=== PATIENT | female | born 1980 | race African-American/Black ===

== ENCOUNTER 2018-02-21 10:49 | Inpatient (IN) | payer OTHER ==
[2018-02-21 12:57] VITALS: BMI 23.8
[2018-02-21] MEDS: DINOPROSTONE 10 MG VAGINAL SUPPOSITORY VG ONE (13:50)
--- NOTE | 2018-02-21 13:58 | PN ---
Progress Note (short form) - Note Progress Note: cx 2 cm 50 vx -2 mr, fhr cat 1, rba to cervidil discussed
[2018-02-21 14:27] LABS: BASO % 0.5 % (0-2.0); EOS % 0.5 % (0-4.5); HEMATOCRIT 35.4 % (32.4-45.2); LYMPH % 34.9 % (8-40); MCH 24.2 pg (25.7-33.7); MCHC 31.2 g/dl (32.0-36.0); MEAN CELL VOLUME 77.5 fl (80-96); MEAN PLT VOLUME 8.5 fl (7.5-11.1); MONO % 5.8 % (3.8-10.2); NEUT % 58.3 % (42.8-82.8); PLATELET COUNT 267 K/MM3 (134-434); RBC 4.56 M/mm3 (3.60-5.2); RDW 14.3 % (11.6-15.6); WHITE BLOOD COUNT 11.5 K/mm3 (4.0-10.0)
[2018-02-21 14:41] LABS: INR 0.92 (0.83-1.09); PROTHROMBIN TIME (PATIENT) 10.8 SEC (9.7-13.0)
[2018-02-21 14:44] LABS: ACTIVATED PTT 25.5 SECONDS (25.2-36.5)
[2018-02-21 15:00] LABS: ANION GAP 9 MMOL/L (8-16); BLOOD UREA NITROGEN 10 mg/dL (7-18); CALCIUM 8.5 mg/dL (8.5-10.1); CHLORIDE 107 mmol/L (98-107); CO2 21 mmol/L (21-32); CREATININE 0.6 mg/dL (0.55-1.3); GLUCOSE,RANDOM 51 mg/dL (74-106); POTASSIUM 4.2 mmol/L (3.5-5.1); SODIUM 137 mmol/L (136-145)
[2018-02-21] MEDS ORDERED: ELECTROLYTE-148 SOLN 1,000 ML IV SCH (19:45)
[2018-02-21] MEDS ORDERED: FENTANYL/BUPIVACAINE/NS/PF - PCEA - 50 ML DISP.SYRIN EP ONE (20:37)
[2018-02-21] MEDS ORDERED: OXYTOCIN 20 UNITS in 0.9% NS 20 UNIT/1,000 ML INFUS.BAG IV ONE (21:17)
--- NOTE | 2018-02-21 21:36 | HP ---
Past Medical History - Admission History of Present Illness: 37 yo @ 40 1/7 wks by first trimester ultrasound, EDC 02/20/2018 complicated by: 1. Chronic Hepatits B - on Tenovir [address] Potter, last seen 11/2017 2. AMA - favorable [id number] Most recent growth - 12/18/17, 1473 grams (13%) Patient presented for routine IOL. She reports movement, denies vaginal bleeding, leakage of fluid or contractions. History Source: Patient Limitations to Obtaining History: No Limitations - Past Medical History Cardiovascular: No: HTN Pulmonary: No: Asthma Hepatobiliary: Yes: Hepatitis B ...: 3 ...Para: 2 ...Term: 2 ...: 0 ...Spon : 0 ...Induced : 0 ...Multiple Gestation: 0 ...LMP: 05/17/17 ... Weeks Gestation by Dates: 40.0 ...EDC by Dates: 02/21/18 ...EDC by Sono: 02/20/18 Heme/Onc: No: Anemia - Past Surgical History Past Surgical History: Yes: None Hx Myomectomy: No Hx Transabdominal Cerclage: No - Smoking History Smoking history: Never smoked Have you smoked in the past 12 months: No - Alcohol/Substance Use Hx Alcohol Use: No History of Substance Use: reports: None - Social History ADL: Independent Occupation: [employer] History of Recent Travel: No Home Medications - Allergies Allergies/Adverse Reactions: Allergies Allergy/AdvReac Type Severity Reaction Status Date / Time naproxen Allergy Intermediate Hives Verified 02/21/18 11:35 hazelnuts Allergy Itching Uncoded 02/21/18 11:35 - Home Medications Home Medications: Ambulatory Orders Vitamins (Sjr) - 1 tab PO DAILY 03/26/13 Tenofovir Disoproxil Fumarate [Viread] 300 mg PO DAILY 03/26/13 Family Disease History - Family Disease History Family History: Denies Review of Systems - Review of Systems Constitutional: reports: No Symptoms Cardiovascular: reports: No Symptoms Respiratory: reports: No Symptoms Gastrointestinal: reports: No Symptoms Genitourinary: reports: No Symptoms Musculoskeletal: reports: No Symptoms Neurological: reports: No Symptoms Endocrine: reports: No Symptoms Physical Exam - Maternity Vital Signs: Vital Signs Temperature 98.3 F 02/21/18 21:00 Pulse Rate 90 02/21/18 20:00 Respiratory Rate 20 02/21/18 20:00 Blood Pressure 127/83 02/21/18 20:00 O2 Sat by Pulse Oximetry (%) Constitutional: Yes: Well Nourished, No Distress, Calm Cardiovascular: Yes: Regular Rate and Rhythm Lungs: Clear to auscultation - Abdominal Exam/OB Fundal Height: 40 Number of Fetuses: Single Presentation: Vertex Contractions: Yes Category: I Accelerations: Non-Uniform Decelerations: None - Physical Exam Edema: No Psychiatric: Yes: Alert, Oriented - Labs Lab Results: CBC, BMP 02/21/18 13:10 02/21/18 13:10 Hemorrhage Risk Assessment - Risk Factors Medium Risk Factors: Yes: None High Risk Factors: Yes: None Risk Score: 1 Risk Level: Medium Risk Assessment/Plan 37 yo @ 40 + wks, elective IOL 1. Admit to L&D 2. Routine labs reviewed 3. Chronic Hep B - will continue tenovir 4. Cervidil inserted by Dr. Locke 5. Will offer pain medication upon request 6. Will continue expectant management
[2018-02-21] MEDS ORDERED: NALOXONE HCL 0.4 MG/ML VIAL IVPUSH PRN (21:44)
[2018-02-21] MEDS ORDERED: FENTANYL/BUPIVACAINE/NS/PF - PCEA - 50 ML DISP.SYRIN EP SCH ×2 (21:45→22:18)
--- NOTE | 2018-02-21 22:13 | PN ---
Delivery - Delivery Vaginal Delivery: No Problems Type of Anesthesia: Epidural Episiotomy/Laceration: None EBL (cc): 300 Delivery, Single - Stages of Labor Date 1st Stage Initiatied: 02/21/18 Time 1st Stage Initiated: 20:12 Date 2nd Stage Initiated: 02/21/18 Time 2nd Stage Initiated: 21:46 Date of Delivery: 02/21/18 Time of Delivery: 21:57 Date Placenta Delivered: 02/21/18 Time Placenta Delivered: 21:59 Placenta: Yes: Spontaneous - Condition of Infant Gender: Male Position: Left, OA Total Hours ROM (Hrs/Mins): 1 hour, 49 minutes - 1 Minute Total Score: 8 5 Minutes Total Score: 9 - [place] Feeding Plan Initial Plan: Exclusive throughout hospitalization Remarks - Remarks Remarks: Patient progressed to fully dilated and at 2157 via delivered a viable male in NIKI position, APGARs 9,9. Weight and length unknown at this time. Head delivered spontaneously. Nuchal cord noted and delivered through, shoulders body without difficulty. Infant with spontaneous cry and placed on mother's abdomen. Nose and mouth was bulb suctioned. Cord was clamped and cut. Cord blood and gas collected and sent. Perineum and vagina examined, no lacerations were noted. Placenta was quickly delivered spontaneously and intact, partial abruption suspected. 20 units of pitocin in 1 L IVF was given. All counts correct x 2. Mother and stable in LDR. EBL 300cc.
[2018-02-21] MEDS ORDERED: BENZOCAINE 20% 57 GM BOTTLE TP PRN (22:24)
[2018-02-21] MEDS ORDERED: METHYLERGONOVINE MALEATE 0.2 MG/1 ML AMP IM PRN (22:24)
[2018-02-21] MEDS ORDERED: WITCH HAZEL 50% (TUCKS) 40 PAD/JAR PAD TP PRN (22:24)
[2018-02-21] MEDS ORDERED: BENZOCAINE 28 GM HEMORRHOIDAL OINTMENT TP PRN (22:24)
[2018-02-21] MEDS ORDERED: BISACODYL 10 MG SUPP.RECT RC PRN (22:24)
[2018-02-21] MEDS ORDERED: OXYTOCIN 20 UNITS in 0.9% NS 20 UNIT/1,000 ML INFUS.BAG IV SCH (22:30)
[2018-02-21 22:53] LABS: ARTERIAL BLOOD GAS PCO2 55.9 mmHg (35-45); ARTERIAL BLOOD GAS pH 7.25 (7.35-7.45)
[2018-02-21 22:54] LABS: ARTERIAL BLOOD GAS BASE EXCESS -4.5 meq/l (-2-2)
[2018-02-21 22:55] LABS: ARTERIAL BLD GAS O2 SATURATION 26.4 % (90-98.9); ARTERIAL BLOOD GAS PO2 19.9 mmHg (80-100)
--- NOTE | 2018-02-22 03:33 | PN ---
Post Progress Note - Subjective Subjective: Patient without acute complaints. Reports tolerating oral intake without nausea or vomiting. Ambulating without dizziness. Denies fevers or chills. Pain well controlled with oral pain medication. without difficulty. Passing flatus. Post Day: 1 Type of Delivery: Vital Signs: Vital Signs Temperature 98.1 F 02/22/18 02:25 Pulse Rate 85 02/22/18 02:25 Respiratory Rate 20 02/22/18 02:25 Blood Pressure 114/75 02/22/18 02:25 O2 Sat by Pulse Oximetry (%) 100 02/21/18 23:00 Breast Exam: Yes: Soft Uterus: Yes: Fundus Firm, Fundus below umbilicus Abdomen/GI: Yes: Abdomen soft, Passing flatus, Tolerating PO. No: Abdominal Distention, Tender Lochia: Yes: Serosa Lochia, amount: Small Extremities: Yes: Calves non-tender. No: Edema Activity: Ambulating - Labs Labs: CBC WBC 11.5 K/mm3 (4.0-10.0) H 02/21/18 13:10 RBC 4.56 M/mm3 (3.60-5.2) 02/21/18 13:10 Hgb 11.0 GM/dL (10.7-15.3) 02/21/18 13:10 Hct 35.4 % (32.4-45.2) 02/21/18 13:10 MCV 77.5 fl (80-96) L 02/21/18 13:10 MCH 24.2 pg (25.7-33.7) L 02/21/18 13:10 MCHC 31.2 g/dl (32.0-36.0) L 02/21/18 13:10 RDW 14.3 % (11.6-15.6) 02/21/18 13:10 Plt Count 267 K/MM3 (134-434) D 02/21/18 13:10 MPV 8.5 fl (7.5-11.1) 02/21/18 13:10 Absolute Neuts (auto) 6.7 K/mm3 (1.5-8.0) 02/21/18 13:10 Neutrophils % 58.3 % (42.8-82.8) 02/21/18 13:10 Lymphocytes % 34.9 % (8-40) 02/21/18 13:10 Monocytes % 5.8 % (3.8-10.2) 02/21/18 13:10 Eosinophils % 0.5 % (0-4.5) 02/21/18 13:10 Basophils % 0.5 % (0-2.0) 02/21/18 13:10 Nucleated RBC % 0 % (0-0) 02/21/18 13:10 Assessment/Plan 37 yo PPD # 1 s/p , afebrile, vital signs stable, doing well 1. Continue routine care. 2. AM CBC with mild anemia 3. Rh positive status, no rhogam indicated. 4. Encourage ambulation 5. Continue oral pain medication 6. Anticipate discharge home day #2
[2018-02-22] MEDS: IBUPROFEN 600 MG TABLET (FP) PO PRN ×3 (06:28→21:53)
[2018-02-22 07:19] LABS: BASO % 0.1 % (0-2.0); EOS % 0.3 % (0-4.5); HEMOGLOBIN 10.1 GM/dL (10.7-15.3); LYMPH % 20.6 % (8-40); MCH 25.7 pg (25.7-33.7); MCHC 33.8 g/dl (32.0-36.0); MEAN CELL VOLUME 76.2 fl (80-96); MEAN PLT VOLUME 8.5 fl (7.5-11.1); MONO % 7.4 % (3.8-10.2); NEUT % 71.6 % (42.8-82.8); PLATELET COUNT 241 K/MM3 (134-434); RBC 3.94 M/mm3 (3.60-5.2); RDW 14.1 % (11.6-15.6); WHITE BLOOD COUNT 14.7 K/mm3 (4.0-10.0)
--- NOTE | 2018-02-22 07:46 | DS ---
Physical Exam-STRATEGIC CLIENT EXECUTIVE Vital Signs: Vital Signs Temperature 98.3 F 02/22/18 06:00 Pulse Rate 81 02/22/18 06:00 Respiratory Rate 20 02/22/18 06:00 Blood Pressure 121/77 02/22/18 06:00 O2 Sat by Pulse Oximetry (%) 100 02/21/18 23:00 Labs: CBC, BMP 02/22/18 06:30 02/21/18 13:10 Delivery - Delivery Vaginal Delivery: No Problems Type of Anesthesia: Epidural Episiotomy/Laceration: None EBL (cc): 300 Delivery, Single - Stages of Labor Date 1st Stage Initiatied: 02/21/18 Time 1st Stage Initiated: 20:12 Date 2nd Stage Initiated: 02/21/18 Time 2nd Stage Initiated: 21:46 Date of Delivery: 02/21/18 Time of Delivery: 21:57 Time Placenta Delivered: 21:59 Placenta: Yes: Spontaneous - Condition of Chief Resource Officer/Pilot Submersible Present: No Infant Gender: Male Weight: 6 lb 3 oz Position: Left, OA Total Hours ROM (Hrs/Mins): 1 hour, 49 minutes - 1 Minute Total Score: 8 5 Minutes Total Score: 9 - [place] Feeding Plan Initial Plan: Exclusive throughout hospitalization Discharge Summary Reason For Visit: LABOR ADMISSION Procedures: Principal: Vaginal delivery Other Procedures: Induction of labor Hospital Course: Patient was admitted for routine induction of labor for postdates. Cervidil was inserted and she progessed to deliver via a viable female infant. PPD # 1 patient ambulated, voiding, passing gas, tolerating oral intake and with adequate pain control. She fulfilled all criteria for discharge PPD #2 Condition: Good - Instructions Disposition: HOME - Home Medications Comprehensive Discharge Medication List: Ambulatory Orders Vitamins (Sjr) - 1 tab PO DAILY 03/26/13 Tenofovir Disoproxil Fumarate [Viread] 300 mg PO DAILY 03/26/13
[2018-02-22] MEDS: TENOFOVIR DISOPROXIL FUMARATE 300 MG TABLET PO SCH (09:42)
[2018-02-22] MEDS: PRENATAL VITAMINS W/ FOLIC ACID TABLET (FP) PO SCH (09:42)
[2018-02-22] MEDS: ACETAMINOPHEN 325 MG TABLET (FP) PO PRN ×2 (11:48→21:54)
[2018-02-22] MEDS ORDERED: SENNOSIDES/DOCUSATE COMBO (SENNA PLUS) TABLET (UD) PO PRN (22:00)
--- NOTE | 2018-02-23 08:55 | PN ---
Progress Note (short form) - Note Progress Note: ppd 2 ,no c/o , voids ok uterus firm, non tender no calf tenderness lochia mild plan d/c home in am
[2018-02-23 09:30] VITALS: BP 115/71; PULSE 80; TEMP 98.7
[2018-02-23] MEDS: PRENATAL VITAMINS W/ FOLIC ACID TABLET (FP) PO SCH (10:15)
[2018-02-23] MEDS: TENOFOVIR DISOPROXIL FUMARATE 300 MG TABLET PO SCH (10:15)
--- NOTE | 2018-02-27 16:46 | PATH ---
Surgical Pathology Report Patient Name: COMPA MONTES [facility]. Rec. #: [id number] /Age/Gender: 1980 (Age: 37) / F Account: [id number] Location: [facility] OBS/DESTINATION SPECIALIST Taken: 02/21/2018 Received: 02/22/2018 Reported: 02/27/2018 Physicians: Minoo Locke M.D. Specimen(s) Received PLACENTA Clinical History , history of chronic hepatitis B, asthma x2, 2013, 2015 Normal spontaneous vaginal delivery, possible abruption Final Diagnosis PLACENTA, DELIVERY: 348 G THIRD TRIMESTER PLACENTA WITH TRIVASCULAR UMBILICAL CORD AND UNREMARKABLE PLACENTAL MEMBRANES. Electronically Signed Gilma Nicholas M.D. Gross Description The specimen is received fresh labeled placenta and is a 348 gram, 12.0 x 12.0 x 3.2 cm. placenta with attached membranes and umbilical cord. The attached membranes are covarrubias, translucent with focal opacities and insert marginally. The umbilical cord measures 6 cm. in length and averages 1.0 cm. in diameter. The cord inserts eccentrically, 2.5 cm. to the nearest margin. No true knots or strictures are identified. Cut surface of the umbilical cord reveals 3 vessels. The surface is aquino-blue with minimal fibrin deposition and appropriate caliber vessels. The maternal surface is red-brown and intact. Sectioning reveals red-brown, and spongy parenchyma. No lesions are identified. Medical Staff Services Coordinator sections are submitted in three cassettes as follows: 1- membrane rolls and umbilical cord; 2-3- full thickness sections of placenta. 02/26/2018 [facility]02/26/2018
== END 2018-02-23 11:20 | disposition home or self-care (01) | DRG 806 ==
LOC: JDEL 10:49 → JLDR 12:15 → J3W 02-22 01:37
PROVIDERS: ADMIT Obstetrics & Gynecology; ATTEND Obstetrics & Gynecology
PROC: 10E0XZZ Delivery of Products of Conception, External Approach (ICD-10-PCS; principal; 2018-02-21)
PROC: 3E0P7VZ Introduction of Hormone into Female Reproductive, Via Natural or Artificial Opening (ICD-10-PCS; 2018-02-21)
DX: O98.42 Viral hepatitis complicating childbirth (principal); B18.1 Chronic viral hepatitis B without delta-agent; Z37.0 Single live birth; O69.81X0 Labor and delivery complicated by cord around neck, without compression, not applicable or unspecified; O48.0 Post-term pregnancy; Z3A.40 40 weeks gestation of pregnancy
CPT/HCPCS: 36415; 36600; 59025; 59409; 80048; 82803; 85025; 85610; 85730; 86593; 86850; 86900; 86901; 87389; 88307-TC

== ENCOUNTER → 2020-09-02 | Day surgery (SDC) | payer BC, OTHER | END | disposition home or self-care (01) | LOC: FMAMMOTONE 10:41 | PROVIDERS: ATTEND Surgery | PROC: 0HBT3ZX Excision of Right Breast, Percutaneous Approach, Diagnostic (ICD-10-PCS; principal; 2020-09-02) | DX: N64.89 Other specified disorders of breast (principal); R92.8 Other abnormal and inconclusive findings on diagnostic imaging of breast | CPT/HCPCS: 19081; 76098-TC-FY; 87899; A4648 ==

== ENCOUNTER 2020-09-29 04:35 | Day surgery (SDC) | payer BC ==
[2020-09-24 16:19] VITALS: BMI 21.1
[2020-09-29] MEDS ORDERED: LIDOCAINE HCL 1%, 10 MG/ML (20ML VIAL) ONE ×2 (10:09→14:40)
[2020-09-29] MEDS ORDERED: GLYCOPYRROLATE 0.2 MG/1 ML VIAL ONE (11:48)
[2020-09-29] MEDS ORDERED: MIDAZOLAM HCL 2 MG/2 ML SINGLE DOSE VIAL ONE (11:48)
[2020-09-29] MEDS ORDERED: ceFAZolin 2 GRAM PREMIX BAG IVPB ONE (12:15)
[2020-09-29] MEDS ORDERED: ceFAZolin SODIUM 1 GM VIAL ONE (12:22)
[2020-09-29] MEDS ORDERED: PROPOFOL 20 ML ONE ×2 (12:22→12:42)
[2020-09-29] MEDS ORDERED: DEXAMETHASONE SOD PHOSPHATE 4 MG/1 ML VIAL ONE (12:22)
[2020-09-29] MEDS ORDERED: LIDOCAINE HCL/PF 2% SDV 5ML VIAL ONE (12:22)
[2020-09-29] MEDS ORDERED: LIDOCAINE HCL 1%, 10 MG/ML (20ML VIAL) INF ONE (12:36)
[2020-09-29] MEDS ORDERED: oxyCODONE HCL 5 MG TABLET ONE (13:08)
[2020-09-29] MEDS ORDERED: oxyCODONE HCL 5 MG TABLET PO ONE (13:15)
[2020-09-29] MEDS ORDERED: ACETAMINOPHEN 325 MG TABLET (FP) PO PRN (14:13)
[2020-09-29] MEDS ORDERED: ACETAMINOPHEN 325 MG TABLET (FP) PO ONE (14:15)
[2020-09-29] MEDS ORDERED: ACETAMINOPHEN 325 MG TABLET (FP) ONE ×2 (14:15→14:16)
[2020-09-29 14:20] VITALS: BP 109/71; PULSE 76; TEMP 98.2
== END 2020-09-29 15:47 | disposition home or self-care (01) ==
LOC: JASU-SURG 04:35
PROVIDERS: ATTEND Surgery
PROC: 0HBT0ZX Excision of Right Breast, Open Approach, Diagnostic (ICD-10-PCS; principal; 2020-09-29 12:00)
DX: D24.1 Benign neoplasm of right breast (principal)
CPT/HCPCS: 19281; 76098-TC-FY; 81025